=== PATIENT | male | born 1925 | race Caucasian/White ===

== ENCOUNTER → 2017-03-03 | Outpatient (CLI) | payer MEDICARE ==
[~2017-03-03] MED LIST: AMLO10TA82 PO; GBPN300C PO; OMEP20TA2 PO; OXYB5TAB9 PO; SIMV20TA3 PO; SIMV40TA4 PO
--- NOTE | 2017-03-03 12:52 | Diagnostic Imaging Report ---
PROCEDURE: CT head without contrast. TECHNIQUE: Multiple contiguous axial images were obtained through the brain without the use of intravenous contrast. INDICATION: Balance problems. FINDINGS: There is no intracranial hemorrhage, edema, or mass effect. The brain parenchyma demonstrates moderate atrophy, particularly prominent in the frontal and parietal regions with ex vacuo dilatation of the CSF spaces. There is periventricular and deep white matter hypodensities compatible with chronic microvascular ischemic changes. The calvarium, the paranasal sinuses, and the orbits appear grossly unremarkable. IMPRESSION: Moderate atrophy in the frontoparietal regions. No acute process. Dictated by: Dictated on workstation # [id number]
== END ==
LOC: RAD 11:48
PROVIDERS: ATTEND Family Medicine
DX: G31.9 Degenerative disease of nervous system, unspecified (principal); R26.89 Other abnormalities of gait and mobility
CPT/HCPCS: 70450